=== PATIENT | female | born 2000 | race Caucasian/White ===

== ENCOUNTER 2021-01-27 14:57 | Inpatient (IN) ==
[2021-01-27] MEDS ORDERED: KETOROLAC 30 MG/ML VIAL IV ONE (15:10)
[2021-01-27] MEDS ORDERED: SODIUM CHLORIDE 0.9% 1000ML 1,000 ML IV STA (15:10)
[2021-01-27] MEDS ORDERED: ONDANSETRON INJ 2 MG/ML 2 ML VIAL IV STA (15:10)
[2021-01-27] MEDS ORDERED: cefTRIAXone SODIUM 2,000 MG/70 ML BAG IV STA (15:11)
--- NOTE | 2021-01-27 15:29 | Emergency Department Note ---
Impression & Plan Renal abscess, Acute flank pain ED Provider Note NAME: KASIA UMANA AGE: 20 SEX: F : 2000 ARRIVES VIA: Walk-In INFORMANT: Patient, boyfriend ED PROVIDER(S): Alfredo Herbert MD CHIEF COMPLAINT: UTI< left sided flank pain HPI: This is a 20-year-old female sent in by Mad Mimi over concerns of the patient was having urinary symptoms along with back pain. Patient denies any fevers or chills however she has been having back pain she describes as an ache with radiation down into her flank that started approximately 3 days ago. The patient has been taking Tylenol as well as ibuprofen for the pain without any relief of the pain. She denies any fevers or chills. She denies any thing makes the pain better or worse. ROS: See above HPI for pertinent positives & negatives. A total of 10 systems reviewed and were otherwise negative. PAST MEDICAL HISTORY: See Below PAST SURGICAL HISTORY: See Below FAMILY HISTORY: See Below SOCIAL HISTORY: See Below HOME MEDICATIONS: See Below ALLERGIES: See Below VITALS: See Below PHYSICAL EXAMINATION: VITAL SIGNS - Vital signs and nursing notes were reviewed. GENERAL - 20-year-old female appearing stated age who is in no acute distress. Communicates well with provider and answers questions appropriately. SKIN - Without rashes. HEAD - NC/AT. EYES - PERRL with EOMI bilaterally. Sclera anicteric. Palpebral conjunctiva pink and moist with no injection noted. EARS - No deformities of external structures noted on gross examination bilaterally. NOSE - Midline and without cyanosis. No epistaxis or purulent drainage noted. S eptum midline without deviation or septal hematoma noted. MOUTH/OROPHARYNX - Without perioral cyanosis. Buccal mucosa pink and moist and without leukoplakia. Tongue midline with equal elevation of palate bilaterally. No tonsillar hypertrophy, erythema, or exudates noted. NECK - Neck with FROM. Supple to palpation. No nuchal rigidity. LUNGS - Chest wall symmetric without accessory muscle use, intercostals retractions, or central cyanosis. Normal vesicular breath sounds CTA B/L. No wheezes, rales, or rhonchi appreciated. CARDIAC - RRR with S1/S2. No murmur, rubs, or gallops appreciated. ABDOMEN - Abdominal contour without pulsations or visible masses. BS normoactive all four quadrants. No tenderness, palpable masses, hepatosplenomegaly, or ascites noted. EXTREMITIES - No clubbing or peripheral cyanosis. No pretibial edema present. +3/5 radial, posterior tibial, and dorsalis pedis pulses palpated throughout. +5/5 strength noted in UE/LE bilaterally. NEUROLOGIC - Cranial nerves II through XII grossly intact. Sensory intact to light touch throughout. Patellar reflexes +2/4. PSYCH - A&Ox3 and cooperates fully with examiner. Pt is very pleasant and interacts well with examiner. MEDICAL DECISION MAKING: Patient was seen and evaluated as above in room C1. Review was performed of nursing notes and vital signs. I did review pertinent previous visits and patient history. After obtaining a thorough history and physical examination the above work up was performed. This is a 20-year-old female who presents the emergency department complaining of back pain. Using shared medical decision making with the patient I offered to discuss her case presentation work-up as well as diagnosis with the patient's parents however the patient declined. She is not she does not have an elevation in her white blood cell count. She was originally sent for an x-ray however the radiologist requested a CAT scan of the abdomen pelvis which was consistent with a renal abscess. I did discuss this with the urologist on-call who felt that if the patient remained afebrile she would not need to be drained and she could be admitted here. He did recommend IV cefepime. I did discuss the case with the hospitalist service who did agree to meet the patient. In the emergency department the patient was given Toradol as well as Dilaudid for her pain. Repeat examination revealed improvement the patient's symptoms. While in the department, I personally reevaluated the patient several times and each time the patient was found to be resting comfortably. The patient was educated upon management, educated upon todays findings/results, educated upon importance of follow up from today's visit, educated upon symptoms in which to return, had questions answered prior to discharge, verbalized understanding, and was discharged home in good condition. An order was placed for continuous cardiac monitoring. The monitor shows a rate of 82 with Normal SInus rhythm. The patient was evaluated during a period of high volume and high acuity during the global COVID-19 pandemic, and that diagnosis was suspected/considered upon their initial presentation. Their evaluation, treatment and testing was consistent with current guidelines for patients who present with complaints or s ymptoms that may be related to COVID-19. Patient was seen while provider was wearing PPE. Triage Nursing notes reviewed. Prior medical records reviewed Vital Signs: reviewed and remarkable for no significant abnormalities Differential diagnosis: Appendicitis, ovarian cyst, ovarian torsion, ectopic , TOA, PID, infections, diverticulitis, UTI, obstruction, mesenteric ischemia, aortic pathology, inflammatory bowel disease, renal colic, PUD, pancreatitis, biliary pathology, hernia, volvulus, constipation, as well as other pathologies. ER treatment provided: See below Laboratory studies: As stated above and show below. Imaging studies: See below Consultation(s): Urology, internal Medicine Past Med/Surg History Medical History Anxiety Social History Smoking Status: Never smoker Second Hand Exposure: No; Do You Dip or Chew Tobacco: No; Tobacco Cessation Education Requested by Patient: No Hx Alcohol Use: Yes Hx Substance Use: No Preferred Language: Irish Hotel Manager Required: No Beliefs That Will Affect Care: None Current Living Situation: Alone Current Living Situation Comment: Apartment with roomates Other Information That Helps Us Care for You: No Feels Safe at Home: Yes Safety Concerns: Feels Safe At This Time Assistive Devices: Glasses Assistive Devices Comment: Contact, permanent bottum retainer for teeth Allergies Allergies Allergy/AdvReac Type Severity Reaction Status Date / Time No Known Allergies Allergy Unverified 01/27/21 19:01 Home Meds Home Medications Medication Instructions Recorded Confirmed levonorgestrel [Mirena] 20 mcg INTRAUTERINE DIRECTED 01/27/21 01/27/21 valacyclovir 1,000 mg PO DAILY 01/27/21 01/27/21 Results & Data (ED) Vital Signs Vital Signs - 24 hr 01/27/21 15:04 01/27/21 15:22 01/27/21 15:27 Temperature 36.5 C Temperature Source Skin Pulse Rate 122 H 80 81 Pulse Rate [Right Finger] 84 Pulse Rate from SpO2 Sensor Pulse Rhythm Regular Pulse Rhythm [Right Finger] Regular Pulse Strength [Right Finger] Normal Respiratory Rate 18 24 22 Respiratory Effort / Characteristics Non-Labored Spontaneous Non-Labored Spontaneous Respiratory Depth Normal Normal Respiratory Pattern Regular Regular Blood Pressure 123/82 134/73 Blood Pressure [Left Arm] 134/73 Blood Pressure Mean 95 93 Blood Pressure Mean [Left Arm] 93 Blood Pressure Position Sitting Blood Pressure Position [Left Arm] Sitting Pulse Oximetry 96 98 Oxygen Delivery Method Room Air Room Air Sepsis Recent Fever Within 48 Hours No Sepsis New/Unexplained Change in Mental Status N/A Sepsis Action Taken by Nursing No Action Required 01/27/21 15:29 01/27/21 15:30 01/27/21 15:40 Temperature Temperature Source Pulse Rate 91 H 79 87 Pulse Rate [Right Finger] Pulse Rate from SpO2 Sensor Pulse Rhythm Pulse Rhythm [Right Finger] Pulse Strength [Right Finger] Respiratory Rate 15 20 16 Respiratory Effort / Characteristics Respiratory Depth Respiratory Pattern Blood Pressure 140/78 Blood Pressure [Left Arm] Blood Pressure Mean 98 Blood Pressure Mean [Left Arm] Blood Pressure Position Blood Pressure Position [Left Arm] Pulse Oximetry Oxygen Delivery Method Sepsis Recent Fever Within 48 Hours Sepsis New/Unexplained Change in Mental Status Sepsis Action Taken by Nursing 01/27/21 15:50 01/27/21 16:00 01/27/21 16:10 Temperature Temperature Source Pulse Rate 79 85 77 Pulse Rate [Right Finger] Pulse Rate from SpO2 Sensor Pulse Rhythm Pulse Rhythm [Right Finger] Pulse Strength [Right Finger] Respiratory Rate 16 18 24 Respiratory Effort / Characteristics Respiratory Depth Respiratory Pattern Blood Pressure 122/74 Blood Pressure [Left Arm] Blood Pressure Mean 90 Blood Pressure Mean [Left Arm] Blood Pressure Position Blood Pressure Position [Left Arm] Pulse Oximetry Oxygen Delivery Method Sepsis Recent Fever Within 48 Hours Sepsis New/Unexplained Change in Mental Status Sepsis Action Taken by Nursing 01/27/21 16:20 01/27/21 16:30 01/27/21 16:40 Temperature Temperature Source Pulse Rate 80 83 77 Pulse Rate [Right Finger] Pulse Rate from SpO2 Sensor 80 83 Pulse Rhythm Pulse Rhythm [Right Finger] Pulse Strength [Right Finger] Respiratory Rate 16 23 17 Respiratory Effort / Characteristics Respiratory Depth Respiratory Pattern Blood Pressure 129/64 Blood Pressure [Left Arm] Blood Pressure Mean 85 Blood Pressure Mean [Left Arm] Blood Pressure Position Blood Pressure Position [Left Arm] Pulse Oximetry 97 97 Oxygen Delivery Method Sepsis Recent Fever Within 48 Hours Sepsis New/Unexplained Change in Mental Status Sepsis Action Taken by Nursing 01/27/21 16:57 01/27/21 17:00 01/27/21 17:10 Temperature Temperature Source Pulse Rate 86 82 73 Pulse Rate [Right Finger] Pulse Rate from SpO2 Sensor 82 80 73 Pulse Rhythm Pulse Rhythm [Right Finger] Pulse Strength [Right Finger] Respiratory Rate 18 17 22 Respiratory Effort / Characteristics Respiratory Depth Respiratory Pattern Blood Pressure 119/68 Blood Pressure [Left Arm] Blood Pressure Mean 85 Blood Pressure Mean [Left Arm] Blood Pressure Position Blood Pressure Position [Left Arm] Pulse Oximetry 97 97 96 Oxygen Delivery Method Sepsis Recent Fever Within 48 Hours Sepsis New/Unexplained Change in Mental Status Sepsis Action Taken by Nursing 01/27/21 17:20 01/27/21 17:30 01/27/21 17:40 Temperature Temperature Source Pulse Rate 86 71 71 Pulse Rate [Right Finger] Pulse Rate from SpO2 Sensor 87 72 72 Pulse Rhythm Pulse Rhythm [Right Finger] Pulse Strength [Right Finger] Respiratory Rate 16 22 20 Respiratory Effort / Characteristics Respiratory Depth Respiratory Pattern Blood Pressure 114/57 L Blood Pressure [Left Arm] Blood Pressure Mean 76 Blood Pressure Mean [Left Arm] Blood Pressure Position Blood Pressure Position [Left Arm] Pulse Oximetry 97 97 96 Oxygen Delivery Method Sepsis Recent Fever Within 48 Hours Sepsis New/Unexplained Change in Mental Status Sepsis Action Taken by Nursing 01/27/21 17:50 01/27/21 18:00 01/27/21 18:01 Temperature Temperature Source Pulse Rate 82 91 H 82 Pulse Rate [Right Finger] Pulse Rate from SpO2 Sensor 81 83 83 Pulse Rhythm Pulse Rhythm [Right Finger] Pulse Strength [Right Finger] Respiratory Rate 18 23 15 Respiratory Effort / Characteristics Respiratory Depth Respiratory Pattern Blood Pressure 117/81 Blood Pressure [Left Arm] Blood Pressure Mean 93 Blood Pressure Mean [Left Arm] Blood Pressure Position Blood Pressure Position [Left Arm] Pulse Oximetry 97 96 98 Oxygen Delivery Method Sepsis Recent Fever Within 48 Hours Sepsis New/Unexplained Change in Mental Status Sepsis Action Taken by [facility] Medications Current Medication List: was personally reviewed by me Laboratory Data Attestation: I reviewed the patient's lab results. Result diagrams: 01/27/21 15:20 01/27/21 15:20 Lab Results 01/27/21 01/27/21 01/27/21 Range/Units 15:20 15:20 15:20 WBC 9.92 (4.8-10.8) K/uL RBC 4.18 L (4.2-5.4) M/uL Hgb 14.1 (12.0-16.0) g/dL Hct 38.8 (37-47) % MCV 92.8 (80-100) fL MCH 33.7 (25-34) pg MCHC 36.3 H (32-36) g/dL RDW Std Deviation 42.8 (36.4-46.3) fL RDW Coeff of Kaycee 12.5 (11.5-14.5) % Plt Count 177 (130-400) K/uL MPV 9.2 (7.4-10.4) fL Immature Gran % (Auto) 0.3 % Neut % (Auto) 84.1 % Lymph % (Auto) 5.4 % Sargent % (Auto) 10.0 % Eos % (Auto) 0.1 % Baso % (Auto) 0.1 % Neut # (Auto) 8.34 H (1.4-6.5) K/uL Lymph # (Auto) 0.54 L (1.2-3.4) K/uL Sargent # (Auto) 0.99 H (0.11-0.59) K/uL Eos # (Auto) 0.01 (0-0.5) K/uL Baso # (Auto) 0.01 (0-0.2) K/uL Immature Gran # (Auto) 0.03 H (0.00-0.02) K/uL Sodium 137 (136-145) mmol/L Potassium 4.2 (3.5-5.1) mmol/L Chloride 104 (98-107) mmol/L Carbon Dioxide 27 (21-32) mmol/L Anion Gap 6.0 (3-11) BUN 10 (7-18) mg/dl Creatinine 0.84 (0.6-1.2) mg/dl Est Cr Clr Drug Dosing 114.2 ml/min Est GFR ( Amer) 115.1 ml/min Est GFR (Non-Af Amer) 99.4 ml/min BUN/Creatinine Ratio 11.4 (10-20) Glucose 103 H (70-99) mg/dl Calcium 9.0 (8.5-10.1) mg/dl Total Bilirubin 1.1 H (0.2-1) mg/dl AST 28 (15-37) U/L ALT 48 (12-78) U/L Alkaline Phosphatase 63 (45-117) U/L Total Creatine Kinase 475 H (26-192) U/L Total Protein 7.5 (6.4-8.2) gm/dl Albumin 3.9 (3.4-5.0) gm/dl Globulin 3.6 (2.5-4.0) gm/dl Albumin/Globulin Ratio 1.1 (0.9-2) Lipase 104 (73-393) U/L Urine Color Dark Yellow Urine Appearance Cloudy A (Clear) Urine pH 6.0 (4.5-7.5) Ur Specific Corona 1.024 (1.000-1.030) Urine Protein 1+ H (Negative) Urine Glucose (UA) Negative (Negative) Urine Ketones 2+ H (Negative) Urine Blood 2+ H (Negative) Urine Nitrite Negative (Negative) Urine Bilirubin 1+ H (Negative) Urine Urobilinogen Negative (Negative) Ur Leukocyte Esterase 2+ H (Negative) Urine WBC (Auto) >30 H (0-5) /hpf Urine RBC (Auto) 10-30 H (0-4) /hpf U Hyaline Cast (Auto) 0 (0-5) /lpf U Epithel Cells (Auto) >30 H (0-5) /lpf Urine Bacteria (Auto) 1+ H (Negative) Urine Test (Negative) 01/27/21 Range/Units 15:20 WBC (4.8-10.8) K/uL RBC (4.2-5.4) M/uL Hgb (12.0-16.0) g/dL Hct (37-47) % MCV (80-100) fL MCH (25-34) pg MCHC (32-36) g/dL RDW Std Deviation (36.4-46.3) fL RDW Coeff of Kaycee (11.5-14.5) % Plt Count (130-400) K/uL MPV (7.4-10.4) fL Immature Gran % (Auto) % Neut % (Auto) % Lymph % (Auto) % Sargent % (Auto) % Eos % (Auto) % Baso % (Auto) % Neut # (Auto) (1.4-6.5) K/uL Lymph # (Auto) (1.2-3.4) K/uL Sargent # (Auto) (0.11-0.59) K/uL Eos # (Auto) (0-0.5) K/uL Baso # (Auto) (0-0.2) K/uL Immature Gran # (Auto) (0.00-0.02) K/uL Sodium (136-145) mmol/L Potassium (3.5-5.1) mmol/L Chloride (98-107) mmol/L Carbon Dioxide (21-32) mmol/L Anion Gap (3-11) BUN (7-18) mg/dl Creatinine (0.6-1.2) mg/dl Est Cr Clr Drug Dosing ml/min Est GFR ( Amer) ml/min Est GFR (Non-Af Amer) ml/min BUN/Creatinine Ratio (10-20) Glucose (70-99) mg/dl Calcium (8.5-10.1) mg/dl Total Bilirubin (0.2-1) mg/dl AST (15-37) U/L ALT (12-78) U/L Alkaline Phosphatase (45-117) U/L Total Creatine Kinase (26-192) U/L Total Protein (6.4-8.2) gm/dl Albumin (3.4-5.0) gm/dl Globulin (2.5-4.0) gm/dl Albumin/Globulin Ratio (0.9-2) Lipase (73-393) U/L Urine Color Urine Appearance (Clear) Urine pH (4.5-7.5) Ur Specific Corona (1.000-1.030) Urine Protein (Negative) Urine Glucose (UA) (Negative) Urine Ketones (Negative) Urine Blood (Negative) Urine Nitrite (Negative) Urine Bilirubin (Negative) Urine Urobilinogen (Negative) Ur Leukocyte Esterase (Negative) Urine WBC (Auto) (0-5) /hpf Urine RBC (Auto) (0-4) /hpf U Hyaline Cast (Auto) (0-5) /lpf U Epithel Cells (Auto) (0-5) /lpf Urine Bacteria (Auto) (Negative) Urine Test Negative (Negative) Administered Medications Discontinued Medications Hydromorphone HCl (Hydromorphone Inj 0.5 Mg/0.5 Ml Syr) 0.5 mg IV Q15M PRN PRN Reason: Pain Stop: 02/10/21 15:09 Last Admin: 01/27/21 19:21 Dose: 0.5 mg Documented by: [id number] Admin: 01/27/21 15:41 Dose: 0.5 mg Documented by: [id number] Sodium Chloride (Nss 1000ml) 1,000 mls @ 999 mls/hr IV .Q1H1M STA Stop: 01/27/21 16:10 Last Infusion: 01/27/21 16:14 Dose: 0 mls/hr Documented by: [id number] Admin: 01/27/21 15:25 Dose: 999 mls/hr Documented by: [id number] Ceftriaxone Sodium (Rocephin) 2,000 mg in 70 mls @ 140 mls/hr IV NOW STA Stop: 01/27/21 15:40 Last Infusion: 01/27/21 16:13 Dose: 0 mls/hr Documented by: [id number] Admin: 01/27/21 15:42 Dose: 140 mls/hr Documented by: [id number] Acetaminophen (Ofirmev) 1,000 mg in 100 mls @ 400 mls/hr IV NOW STA Stop: 01/27/21 16:31 Last Infusion: 01/27/21 16:53 Dose: 0 mls/hr Documented by: [id number] Admin: 01/27/21 16:31 Dose: 400 mls/hr Documented by: [id number] Cefepime HCl (Maxipime) 2,000 mg in 20 mls @ 5 mls/min IV NOW STA Stop: 01/27/21 17:39 Last Admin: 01/27/21 17:45 Dose: 5 mls/min Documented by: [id number] Vancomycin HCl 1,500 mg/ (Sodium Chloride) 530 mls @ 200 mls/hr IV NOW STA Stop: 01/27/21 21:03 Last Admin: 01/27/21 19:26 Dose: 200 mls/hr Documented by: [id number] Ioversol (Optiray 300 100ml) 89 ml IV ONCE ONE Stop: 01/27/21 16:48 Last Admin: 01/27/21 16:49 Dose: 89 ml Documented by: [id number] Ketorolac Tromethamine (Ketorolac 30 Mg/Ml Vial) 30 mg IV NOW ONE Stop: 01/27/21 15:11 Last Admin: 01/27/21 15:38 Dose: 30 mg Documented by: [id number] Ondansetron HCl (Ondansetron Inj 2 Mg/Ml 2 Ml Vial) 4 mg IV NOW STA Stop: 01/27/21 15:11 Last Admin: 01/27/21 15:38 Dose: 4 mg Documented by: [id number] Trimethoprim/Sulfamethoxazole (Sulfamethoxazole/Trimethoprim Ds 800/160mg Tab) 1 tab PO NOW ONE Stop: 01/27/21 16:17 Last Admin: 01/27/21 16:32 Dose: 1 tab Documented by: [id number] Imaging Data Radiologist's Impression: KUB X-Ray 01/27/21 15:15 KUB CLINICAL HISTORY: Right flank pain. COMPARISON STUDY: None. FINDINGS: Incidental note is made of an intrauterine device. The bowel gas pattern is normal. Visualized skeletal structures are unremarkable. No urinary calculi are identified. There is apparent irregularity of the posterior right 11th rib. A few adjacent calcific densities measure up to 8 mm. IMPRESSION: 1. No urinary calculi identified. 2. No evidence for a bowel obstruction. 3. Apparent irregularity of the posterior right 11th rib with a few adjacent calcific densities. The findings are of questionable significance however a CT of the abdomen and pelvis is recommended for further evaluation. ACT 112: Negative or not required by law. Electronically signed by: Arley Szymanski M.D. 01/27/2021 3:55 PM Abdomen/Pelvis CT 01/27/21 16:03 CT OF THE ABDOMEN AND PELVIS WITH CONTRAST CLINICAL HISTORY: Right flank pain. COMPARISON STUDY: KUB performed earlier today. TECHNIQUE: Following IV administration of 89 mL of Optiray, axial images of the abdomen and pelvis were obtained from the lung bases to the proximal femurs. Images were reviewed in the axial, sagittal, and coronal planes. IV contrast was administered without complication. Automated exposure control was utilized for the study. A dose lowering technique was utilized adhering to the principles of ALARA. CT DOSE: 322.73 mGy.cm FINDINGS: Lung bases are unremarkable with the exception of a trace left pleural effusion. No pneumatosis, free air or portal venous gas is present. There is borderline splenomegaly. The liver, adrenal glands, right kidney and pancreas are unremarkable. There is no hydronephrosis. There may be trace fluid adjacent to the gallbladder. Note is made of a 4.3 x 3.1 cm fluid collection within the midpole of the left kidney. There is hypoenhancement of the adjacent renal parenchyma with mild left perinephric infiltration. Note is also made of mild urothelial thickening of the left collecting system as well as the left ureter. No urinary calculi are identified. Intrauterine device is in place. There is trace fluid within the pelvis. A 2.6 cm low-attenuation left adnexal lesion represents a cyst or dominant follicle. There is no evidence for a bowel obstruction. The appendix is partially obscured but visualized portions are normal. Major vasculature is patent. No acute fracture or suspicious lesion is identified within the visualized skeletal structures. The possible abnormality of the right 11th rib on KUB was due to overlying costal cartilages. IMPRESSION: 4.3 x 3.1 cm left renal fluid collection with hypoenhancement/edema of the adjacent renal parenchyma and mild left perinephric infiltration. The findings are highly suggestive of a left renal abscess. Mild urothelial thickening of the left collecting system and left ureter suggests pyelitis. Renal ultrasound following treatment is recommended to ensure resolution. ACT 112: Negative or not required by law. Electronically signed by: Arley Szymanski M.D. 01/27/2021 5:12 PM Discharge Plan Visit Data Chief Complaint: Urinary Symptoms Stated Complaint: BACK PAIN, REF OVER ED Provider: Alfredo Herbert Discharge Problem: Renal abscess, Acute flank pain Patient Disposition: Admitted As Inpatient Discharge Instructions Interventions: ED Discharge Assessment Last Done: 01/27/21 20:13
[2021-01-27 15:41] LABS: Basophils # (auto) 0.01 K/uL (0-0.2); Basophils % (auto) 0.1 %; Eosinophils # (auto) 0.01 K/uL (0-0.5); Eosinophils % (auto) 0.1 %; Hematocrit (blood only) 38.8 % (37-47); Hemoglobin 14.1 g/dL (12.0-16.0); Immature Granulocytes # (auto) 0.03 K/uL (0.00-0.02); Immature Granulocytes % (auto) 0.3 %; Lymphocytes # (auto) 0.54 K/uL (1.2-3.4); Lymphocytes % (auto) 5.4 %; Mean Corpuscular Hemoglobin 33.7 pg (25-34); Mean Corpuscular Hgb Conc 36.3 g/dL (32-36); Mean Corpuscular Volume 92.8 fL (80-100); Mean Platelet Volume 9.2 fL (7.4-10.4); Monocytes # (auto) 0.99 K/uL (0.11-0.59); Neutrophils # (auto) 8.34 K/uL (1.4-6.5); Neutrophils % (auto) 84.1 %; Platelet Count 177 K/uL (130-400); Pregnancy Test, Urine Negative (Negative); RDW Coefficient of Variation 12.5 % (11.5-14.5); RDW Standard Deviation 42.8 fL (36.4-46.3); Red Blood Count 4.18 M/uL (4.2-5.4); White Blood Count 9.92 K/uL (4.8-10.8)
[2021-01-27] MEDS: HYDROmorphone INJ 0.5 MG/0.5 ML SYR IV PRN ×2 (15:41→19:21)
[2021-01-27 15:42] LABS: Appearance Urine Cloudy (Clear); Bacteria Urine Automated 1+ (Negative); Blood Urine 2+ (Negative); Color Urine Dark Yellow; Epithelial Cell Urine Auto >30 /lpf (0-5); Glucose Urine UA Negative (Negative); Ketones Urine 2+ (Negative); Leukocyte Esterase Urine 2+ (Negative); Nitrite Urine Negative (Negative); Protein Urine 1+ (Negative); Specific Gravity Urine 1.024 (1.000-1.030); Urobilinogen Urine Negative (Negative); WBC Urine Automated >30 /hpf (0-5)
--- NOTE | 2021-01-27 15:57 | XRay Report ---
KUB CLINICAL HISTORY: Right flank pain. COMPARISON STUDY: None. FINDINGS: Incidental note is made of an intrauterine device. The bowel gas pattern is normal. Visuali zed skeletal structures are unremarkable. No urinary calculi are identified. There is apparent irregu larity of the posterior right 11th rib. A few adjacent calcific densities measure up to 8 mm. IMPRESSION: 1. No urinary calculi identified. 2. No evidence for a bowel obstruction. 3. Apparent irregularity of the posterior right 11th rib with a few adjacent calcific densities. The findings are of questionable significance however a CT of the abdomen and pelvis is recommended for f urther evaluation. ACT 112: Negative or not required by law. Electronically signed by: Arley Szymanski M.D. 01/27/2021 3:55 PM
[2021-01-27 16:01] LABS: Albumin Level 3.9 gm/dl (3.4-5.0); BUN Creatinine Ratio 11.4 (10-20); Creatinine Clr Calc Pharmacy 114.2 ml/min; Est GFR (African American) 115.1 ml/min; Est GFR (Non-African American) 99.4 ml/min; Potassium 4.2 mmol/L (3.5-5.1)
[2021-01-27 16:02] LABS: Bilirubin Urine 1+ (Negative)
[2021-01-27 16:04] LABS: Albumin Globulin Ratio 1.1 (0.9-2); Bilirubin,Total 1.1 mg/dl (0.2-1); Cast Urine Automated 0 /lpf (0-5); Globulin 3.6 gm/dl (2.5-4.0); Total Protein 7.5 gm/dl (6.4-8.2)
[2021-01-27] MEDS ORDERED: SULFAMETHOXAZOLE/TRIMETHOPRIM DS 800/160MG TAB PO ONE (16:16)
[2021-01-27] MEDS ORDERED: ACETAMINOPHEN 1,000 MG/100 ML VIAL IV STA (16:17)
[2021-01-27] MEDS ORDERED: OPTIRAY 300 100mL IV ONE (16:47)
--- NOTE | 2021-01-27 17:13 | CT Scan Report ---
CT OF THE ABDOMEN AND PELVIS WITH CONTRAST CLINICAL HISTORY: Right flank pain. COMPARISON STUDY: KUB performed earlier today. TECHNIQUE: Following IV administration of 89 mL of Optiray, axial images of the abdomen and pelvis we re obtained from the lung bases to the proximal femurs. Images were reviewed in the axial, sagittal, and coronal planes. IV contrast was administered without complication. Automated exposure control wa s utilized for the study. A dose lowering technique was utilized adhering to the principles of ALARA . CT DOSE: 322.73 mGy.cm FINDINGS: Lung bases are unremarkable with the exception of a trace left pleural effusion. No pneumat osis, free air or portal venous gas is present. There is borderline splenomegaly. The liver, adrenal glands, right kidney and pancreas are unremarkable. There is no hydronephrosis. There may be trace fl uid adjacent to the gallbladder. Note is made of a 4.3 x 3.1 cm fluid collection within the midpole o f the left kidney. There is hypoenhancement of the adjacent renal parenchyma with mild left perinephr ic infiltration. Note is also made of mild urothelial thickening of the left collecting system as wel l as the left ureter. No urinary calculi are identified. Intrauterine device is in place. There is tr clyde fluid within the pelvis. A 2.6 cm low-attenuation left adnexal lesion represents a cyst or domina nt follicle. There is no evidence for a bowel obstruction. The appendix is partially obscured but vis ualized portions are normal. Major vasculature is patent. No acute fracture or suspicious lesion is i dentified within the visualized skeletal structures. The possible abnormality of the right 11th rib o n KUB was due to overlying costal cartilages. IMPRESSION: 4.3 x 3.1 cm left renal fluid collection with hypoenhancement/edema of the adjacent renal parenchyma and mild left perinephric infiltration. The findings are highly suggestive of a left renal abscess. M ild urothelial thickening of the left collecting system and left ureter suggests pyelitis. Renal ultr asound following treatment is recommended to ensure resolution. ACT 112: Negative or not required by law. Electronically signed by: Arley Szymanski M.D. 01/27/2021 5:12 PM
[2021-01-27] MEDS ORDERED: CEFEPIME 2,000 MG/20 ML VIAL IV STA (17:36)
--- NOTE | 2021-01-27 18:07 | History & Physical Report ---
Date of Service January 27, 2021 Assessment & Plan (1) Renal abscess: Patient is nonseptic 4.3 x 3.1 cm left renal abscess -initially will treat medically given abscess is less than 5 cm. Consider reimaging at the end of treatment to ensure resolution. Bactrim p.o., ceftriaxone 2 g IV and cefepime 2 g IV given in ER. We will continue cefepime 2 g IV and add vancomycin until MRSA is ruled out. Follow-up urine and blood cultures Consult urology (2) Anxiety: On no routine medication for this. Admission and Anticipated Discharge Date Admission Date: January 27, 2021 History of Present Illness Chief Complaint: Left flank pain Primary Care Provider: DO Jill Hendrickson Jared is a 20-year-old female who presents to the ER with left flank pain. She reports initial symptoms 2 weeks ago with increased urinary frequency although also reports she drinks a lot of fluid and she is unsure whether this was out of the ordinary. For the past 3 days she is and left flank pain with urine increasingly yellow. Last 2 days with chills and sweats but no objective fever. She is planning to go to [facility] today however the wait was too long and she was told she likely has a kidney infection therefore came straight to [facility] ER. For contraception she has the Mirena coil. Urine test in the emergency room was negative. Of note she previously tested positive for COVID-19 on January 08 with mild nasal congestion In the ER CT abdomen pelvis with contrast showed a 4.3 x 3.1 cm left renal fluid collection consistent with an abscess. She has no history of immunosuppression or recurrent infections. She is referred to medicine for admission ongoing management of renal abscess. Allergies Allergy/AdvReac Type Severity Reaction Status Date / Time No Known Allergies Allergy Unverified 01/27/21 19:01 Home Medications Medication Instructions Recorded Confirmed Type levonorgestrel [Mirena] 20 mcg INTRAUTERINE DIRECTED 01/27/21 01/27/21 History valacyclovir 1,000 mg PO DAILY 01/27/21 01/27/21 History Past Med/Surg History Medical History Anxiety Social History Smoking Status: Never smoker Preferred Language: Bulgarian Feels Safe at Home: Yes Review of Systems Review of Systems: All systems reviewed & are unremarkable except as noted in HPI & below Physical Exam Constitutional: WD/WN, vitals as above Eyes: + anicteric sclerae; normal pupil size ENMT: external ear and nose normal, oropharynx normal Respiratory: normal respiratory effort, lungs clear to auscultation Cardiovascular: RRR, no murmur, no edema Gastrointestinal (Abdomen): normal bowel sounds, soft, nontender, no hepatosplenomegaly Musculoskeletal: no cyanosis or clubbing, extremities motor strength 5/5 Skin: no rashes, warm and dry Neurologic: moves all extremities and awake; not confused Psychiatric: A+Ox3, euthymic affect Genitourinary: + CVA tenderness (Left) Results & Data Results & Data ([facility]) Vital Signs (Past 12 Hours) Vital Signs Temp Pulse Pulse Resp BP BP Pulse Ox 01/27/21 18:01 82 15 117/81 98 01/27/21 18:00 91 H 23 96 01/27/21 17:50 82 18 97 01/27/21 17:40 71 20 96 01/27/21 17:30 71 22 114/57 L 97 01/27/21 17:20 86 16 97 01/27/21 17:10 73 22 96 01/27/21 17:00 82 17 119/68 97 01/27/21 16:57 86 18 97 01/27/21 16:40 77 17 01/27/21 16:30 83 23 129/64 97 01/27/21 16:20 80 16 97 01/27/21 16:10 77 24 01/27/21 16:00 85 18 122/74 01/27/21 15:50 79 16 01/27/21 15:40 87 16 01/27/21 15:30 79 20 140/78 01/27/21 15:29 91 H 15 01/27/21 15:27 81 84 22 134/73 98 01/27/21 15:22 80 24 134/73 01/27/21 15:04 36.5 C 122 H 18 123/[address] OF THE ABDOMEN AND PELVIS WITH CONTRAST IMPRESSION: 4.3 x 3.1 cm left renal fluid collection with hypoenhancement/edema of the adjacent renal parenchyma and mild left perinephric infiltration. The findings are highly suggestive of a left renal abscess. Mild urothelial thickening of the left collecting system and left ureter suggests pyelitis. Renal ultrasound following treatment is recommended to ensure resolution. Medications Administered ER medications given: NSS 1 hour bolus Toradol 30 mg IV Ondansetron 4 mg IV Ceftriaxone 2 g IV Bactrim 800/160 mg 1 tab p.o. Acetaminophen 1 g IV Cefepime 2 g IV Code Status & VTE Plan Code Status Full VTE Prophylaxis Plan VTE Prophylaxis will be ordered: No PG Care Time/CCT Total # of Minutes Spent Total Time Spent with Patient: Total time spent is greater than 50% in coordination of care (as documented) at patient's floor/unit and/or counseling patient: Coding Level of Care Code 74614 Initial Inpt Care Lvl 2 Diagnoses Renal abscess N15.1 Anxiety F41.9
[2021-01-27] MEDS ORDERED: VANCOMYCIN CONSULT ACTIVE PRN (18:21)
[2021-01-27] MEDS ORDERED: VANCOMYCIN HCL 1,500 MG in SODIUM CHLORIDE 0.9% 500 ML IV STA (18:25)
--- NOTE | 2021-01-27 19:46 | Urology Consultation ---
Date of Consultation January 27, 2021 Assessment & Plan (1) Renal abscess: Patient has been admitted to the hospital there was service. We will proceed as follows: Continue antibiotics in the form of cefepime and vancomycin which have been initiated We will monitor the patient's clinical progress and consider reimaging her in several days to see if there is any improvement in the size of her perinephric abscess. Earlier reimaging can be considered if the patient spikes fevers or clinically deteriorates despite antibiotic therapy I discussed with the patient that if her abscess does not resolve she may need to be transferred to the alternate facility where interventional radiology dr woods could be performed or IV was discussed with the possibility that she may require surgical drainage this is yet to be determined We will continue to follow along while the patient was hospitalized History of Present Illness Reason for Consultation: Perinephric abscess History of Present Illness This is a 20-year-old female who presented to the emergency department secondary to fevers, shakes, chills, and back pain. Patient says that she noticed her symptoms approximately 3 to 4 days ago. She said that due to Covid she was not going to the gym working out very much and she recently started working out at the gym. Her symptoms began as stated earlier with back pain on the left side and she merely thought that she strained a muscle in the gym. Over the ensuing few days though however the patient developed sweats, chills, and fevers. She noted that she has not had any hematuria or dysuria. As of her ongoing symptoms she presented to the emergency department. Does not note any modifying factors. In the emergency department patient had labs and imaging which I independently reviewed. She had a CT scan of her abdomen that demonstrated a 4.3 x 3.1 cm left perinephric fluid collection concerning for an abscess. Her white blood cell count was noted to be normal on CBC, as well as her hemoglobin, hematocrit and platelet count all noted to be normal. Chemistry profile showed her sodium, potassium, BUN, and creatinine were all normal. Urinalysis did demonstrate positive leukocyte esterase as well as pyuria. Of note she had a Covid test that was noted to be positive. During her Covid being positive the patient has not had any cough. She does have fevers as noted above. She has not lost her sense of taste or smell. At the time of interview she is resting comfortably in bed no distress. Allergies Allergy/AdvReac Type Severity Reaction Status Date / Time No Known Allergies Allergy Unverified 01/27/21 19:01 Home Medications Medication Instructions Recorded Confirmed Type levonorgestrel [Mirena] 20 mcg INTRAUTERINE DIRECTED 01/27/21 01/27/21 History valacyclovir 1,000 mg PO DAILY 01/27/21 01/27/21 History Patient History Medical History Anxiety Social History Smoking Status: Never smoker Second Hand Exposure: No; Do You Dip or Chew Tobacco: No; Tobacco Cessation Education Requested by Patient: No Hx Alcohol Use: Yes Hx Substance Use: No Preferred Language: [place] [employer] Bailiff Required: No Beliefs That Will Affect Care: None Current Living Situation: Alone Current Living Situation Comment: Apartment with roomates Other Information That Helps Us Care for You: No Feels Safe at Home: Yes Safety Concerns: Feels Safe At This Time Assistive Devices: Glasses Assistive Devices Comment: Contact, permanent bottum retainer for teeth Review of Systems Constitutional: + fever, + chills and + sweats Eyes: no diplopia Ear, Nose, Mouth, Throat: no ear trauma Respiratory: no cough and no dyspnea Cardiovascular: no chest pain Gastrointestinal: no abdominal pain, no nausea and no vomiting Genitourinary: + urinary frequency and + flank pain (Left-sided); no dysuria Musculoskeletal: + back pain (Left-sided flank pain) Integumentary: no rash Neurologic: no localized weakness Physical Exam Constitutional: well developed and well nourished; no acute distress Eyes: no conjunctival abnormality ENMT: Ears: no hearing impairment Neck: trachea midline Respiratory: normal respiratory effort, lungs clear to auscultation Cardiovascular: Rate/Rhythm: regular rate and regular rhythm Gastrointestinal (Abdomen): Abdomen is soft and nondistended. There is no rebound tenderness or guarding. Palpation did not cause pain. Musculoskeletal: No calf tenderness Skin: no rashes, warm and dry Neurologic: moves all extremities Psychiatric: A+Ox3, euthymic affect Genitourinary: + CVA tenderness (Left-sided) Results & Data ([facility]) Vital Signs (Past 12 Hours) Vital Signs Temp Pulse Pulse Resp BP BP Pulse Ox 01/27/21 19:32 37.0 C 86 20 131/71 98 01/27/21 19:00 73 19 119/75 99 01/27/21 18:30 76 22 133/70 98 01/27/21 18:01 82 15 117/81 98 01/27/21 18:00 91 H 23 96 01/27/21 17:50 82 18 97 01/27/21 17:40 71 20 96 01/27/21 17:30 71 22 114/57 L 97 01/27/21 17:20 86 16 97 01/27/21 17:10 73 22 96 01/27/21 17:00 82 17 119/68 97 01/27/21 16:57 86 18 97 01/27/21 16:40 77 17 01/27/21 16:30 83 23 129/64 97 01/27/21 16:20 80 16 97 01/27/21 16:10 77 24 01/27/21 16:00 85 18 122/74 01/27/21 15:50 79 16 01/27/21 15:40 87 16 01/27/21 15:30 79 20 140/78 01/27/21 15:29 91 H 15 01/27/21 15:27 81 84 22 134/73 98 01/27/21 15:22 80 24 134/73 01/27/21 15:04 36.5 C 122 H 18 123/82 96 PG Care Time/CCT Total # of Minutes Spent Total Time Spent with Patient: Total time spent is greater than 50% in coordination of care (as documented) at patient's floor/unit and/or counseling patient: Coding Level of Care Code 96681 Inpt Consult Level 5 Diagnoses Renal abscess N15.1
[2021-01-27] MEDS ORDERED: POLYETHYLENE (MIRALAX) 17 GM PACK PO PRN (20:31)
[2021-01-27] MEDS ORDERED: CEFEPIME CONSULT ACTIVE SCH (20:31)
[2021-01-27] MEDS ORDERED: ONDANSETRON INJ 2 MG/ML 2 ML VIAL IV PRN (20:31)
[2021-01-27] MEDS ORDERED: ALUMINUM/MAGNESIUM SUSP 30 ML UDC PO PRN (20:31)
--- NOTE | 2021-01-27 20:39 | Pharmacy Report ---
Pharmacy Abx Dose Short Note - Date of Service January 27, 2021 - Assessment & Plan Assessment * 20 year old F receiving Vancomycin and Cefepime for treatment of perinephric abscess * Received Cefepime, Bactrim and Ceftriaxone in the ED * Afebrile and without white count. Plan Vancomycin * Target AUC/NAHUM = 400-600 * AUC/NAHUM is the preferred PK/PD target for Vancomycin * Loading Dose = 1500 (22 mg/kg) IV x 1 * Maintenance Dose = 1250 mg (18 mg/kg) IV every 12 hours * This regimen is expected to produce a steady-state AUC of 576 and a steady- state trough of 17. It has a probability of 80% to reach our goal AUC with only a 13% risk of nephrotoxicity. Cefepime * 2000 mg IV every 12 hours Pharmacy will continue to follow and will adjust dose/frequency as necessary. Thank you.
[2021-01-27] MEDS: ACETAMINOPHEN 325 MG TAB PO PRN (22:24)
[2021-01-27] MEDS: KETOROLAC TROMETHAMINE 15 MG/ML VIAL IV PRN (23:31)
[2021-01-28] MEDS: ACETAMINOPHEN 325 MG TAB PO PRN ×3 (04:32→20:48)
[2021-01-28] MEDS: oxyCODONE HCL IR 5 MG TAB (IMMEDIATE RELEASE) PO PRN ×3 (04:33→20:48)
[2021-01-28] MEDS: KETOROLAC TROMETHAMINE 15 MG/ML VIAL IV PRN ×3 (05:46→20:49)
[2021-01-28] MEDS: CEFEPIME 2,000 MG in SYRINGE 0 ML IV SCH ×2 (05:47→17:43)
[2021-01-28] MEDS ORDERED: VANCOMYCIN HCL 1,250 MG in SODIUM CHLORIDE 0.9% 250 ML IV SCH (07:00)
[2021-01-28 07:01] LABS: Creatinine Clr Calc Pharmacy 125.9 ml/min; Est GFR (Non-African American) 112.1 ml/min
--- NOTE | 2021-01-28 09:47 | Urology Progress Note ---
Date of Service January 28, 2021 Assessment & Plan (1) Renal abscess: 20 year-old female patient admitted with left flank pain and chills secondary to left renal abscess. -Plan of care reviewed with Dr. Baxter. -T-max in 24 hours 37.7C, recheck this AM 36.8C. -Labs reviewed - creatinine stable. -Preliminary urine culture 80,000 cfu E.Coli, sensitivities pending. -Blood cultures pending. -Continue supportive care and antibiotic therapy, await culture results. -Continue to monitor the patient's clinical progress closely, will need repeat imaging in the future to ensure resolution of abscess. -Earlier reimaging can be considered if the patient becomes febrile or clinically deteriorates despite antibiotic therapy. -For any acute changes in patient status or if she becomes febrile, do recommend transfer to tertiary center for IR intervention/placement of retroperitoneal drain. -Recommendations discussed with patient's primary team. -Will continue to follow closely while inpatient. Admission and Anticipated Discharge Date Admission Date: January 27, 2021 Subjective Patient examined at bedside. She is alert, awake, non-toxic in appearance. Does report earlier this morning, she did have an increase in nausea and chills. Left flank pain also increased early this AM. States after she received PRN pain medication, nausea and pain improved. Currently rates pain 6 out of 10. At time of exam, she denies fevers or chills. Currently denies nausea or vomiting. Denies dysuria or hematuria. Denies urinary frequency but notes urgency at times. Has been ambulating without dizziness/lightheadedness. Overall, she has had improvement in symptoms since this AM. Chart review: T max in 24 hours 37.7C, recheck this morning of 36.8C. Labs 01/27 - Wbc 9.92 Hgb 14.1 Creatinine today 0.76 Preliminary urine culture 80,000 cfu E.Coli. Preliminary blood cultures pending. Patient currently on IV Vancomycin and IV Cefepime. Denies additional urologic concerns today. Review of Systems Constitutional: as per Subjective / HPI and + chills; no fever Respiratory: no cough and no dyspnea Cardiovascular: no edema Gastrointestinal: as per Subjective / HPI and + nausea; no vomiting Genitourinary: as per Subjective / HPI Physical Exam Constitutional: well developed and well nourished; no acute distress and not ill appearing Respiratory: normal respiratory effort and able to speak in complete sentences; no respiratory distress and no audible wheezes Gastrointestinal (Abdomen): Inspection/Auscultation: abdomen normal to inspection; abdomen not distended Percussion/Palpation: abdomen soft; abdomen nontender and no guarding Psychiatric: Orientation: alert, oriented x 3 and cooperative Affect: euthymic affect Genitourinary: + CVA tenderness (+ left CVA tenderness) Results & Data ([facility]) Vital Signs (Past 12 Hours) Vital Signs Temp Pulse Resp BP Pulse Ox 01/28/21 07:34 36.8 C 69 16 107/61 99 01/28/21 04:31 37.7 C H 01/27/21 22:23 36.9 C PG Care Time/CCT Total # of Minutes Spent Total Time Spent with Patient: Total time spent is greater than 50% in coordination of care (as documented) at patient's floor/unit and/or counseling patient: Coding Level of Care Code 93544 Subseq Hosp Care Lvl 2 Diagnoses Renal abscess N15.1
[2021-01-28] MEDS: valACYclovir HCL 500 MG TABLET PO SCH ×2 (11:05→21:15)
--- NOTE | 2021-01-28 13:23 | Hospitalist Progress Note ---
Date of Service January 28, 2021 Assessment & Plan (1) Renal abscess: Due to UTI. CT a/p on 01/27 showed 4.3 x 3.1 cm left renal abscess. - Continue cefepime - Urine culture growing E. coli - Follow sensitivities. - Consulted urology -> Will monitor with IV abx. If abscess getting bigger, will consider drainage either here or at tertiary care. (2) Recurrent cold sores: Has script at home for when she feels one coming. Discussed with urology today. - Started valacyclovir 2g PO BID x 3 days per updated guidelines. Spoke with 2 pharmacists to confirm dosing. (3) Anxiety: On no routine medication for this. - Monitor (4) DVT prophylaxis: SCDs - Low DVT risk per admission calculator Admission and Anticipated Discharge Date Admission Date: January 27, 2021 Subjective Some pain overnight. Less so now. Notes a tingling on her upper lip that is the usual signal of a cold sore coming on. Reports no fevers/chills, chest pain, shortness of breath, abdominal pain, nausea, or vomiting. Physical Exam Constitutional: WD/WN, vitals as above Eyes: EOM intact bilaterally; no conjunctival abnormality ENMT: external ear and nose normal, oropharynx normal Neck: trachea midline, no thyromegaly normal visual inspection Respiratory: normal respiratory effort, lungs clear to auscultation no respiratory distress Cardiovascular: RRR, no murmur, no edema Gastrointestinal (Abdomen): Inspection/Auscultation: abdomen normal to inspection; abdomen not distended Musculoskeletal: no cyanosis or clubbing, extremities motor strength 5/5 Skin: no rashes, warm and dry Neurologic: moves all extremities and awake Psychiatric: Orientation: alert, oriented to person and cooperative Genitourinary: + CVA tenderness (Left) Results & Data Results & Data ([facility]) Vital Signs (Past 12 Hours) Vital Signs Temp Pulse Resp BP Pulse Ox 01/28/21 07:34 36.8 C 69 16 107/61 99 01/28/21 04:31 37.7 C H PG Care Time/CCT Total # of Minutes Spent Total Time Spent with Patient: Total time spent is greater than 50% in coordination of care (as documented) at patient's floor/unit and/or counseling patient: Coding Level of Care Code 11663 Subseq Hosp Care Lvl 3 Diagnoses Renal abscess N15.1 Recurrent cold sores B00.1 Anxiety F41.9 DVT prophylaxis Z29.9
[2021-01-29] MEDS: ACETAMINOPHEN 325 MG TAB PO PRN ×2 (04:58→12:23)
[2021-01-29] MEDS: KETOROLAC TROMETHAMINE 15 MG/ML VIAL IV PRN ×3 (04:58→19:54)
[2021-01-29] MEDS: CEFEPIME 2,000 MG in SYRINGE 0 ML IV SCH (06:11)
[2021-01-29] MEDS ORDERED: VANCOMYCIN LEVEL ONE (06:30)
[2021-01-29 06:38] LABS: Creatinine Clr Calc Pharmacy 147.2 ml/min; Est GFR (African American) 147.1 ml/min; Est GFR (Non-African American) 126.9 ml/min
--- NOTE | 2021-01-29 09:27 | Ultrasound Report ---
LEFT RENAL ULTRASOUND HISTORY: Left kidney -> Monitor abscess. COMPARISON: CT of the abdomen and pelvis January 27, 2021. FINDINGS: Note is made of a complex fluid collection within the midpole of the left kidney which nina esponds to the finding on CT of January 27, 2021. Hypervascularity of the adjacent renal parenchyma is no skylar. This collection measures 3.6 x 3.4 x 3 cm. This has minimally decreased in size since CT of January 27, 2021 when it measured 4.3 cm in maximal dimension. IMPRESSION: Minimal decrease in size of a 3.6 cm left renal abscess since CT of January 27, 2021. ACT 112: Negative or not required by law. Electronically signed by: Arley Szymanski M.D. 01/29/2021 9:25 AM
--- NOTE | 2021-01-29 13:11 | Hospitalist Progress Note ---
Date of Service January 29, 2021 Assessment & Plan (1) Renal abscess: Due to UTI. CT a/p on 01/27 showed 4.3 x 3.1 cm left renal abscess. - Cefepime switch to ceftriaxone for orr-sensitive E. coli. - Consulted urology -> Will monitor with IV abx. Abscess slightly smaller on u/s on 01/29. - Will consult [facility] for abx duration. UpToDate indicates 2-3 week duration total. (2) Recurrent cold sores: Has script at home for when she feels one coming. - Started valacyclovir 2g PO BID x 3 days on 01/28 per updated guidelines. Spoke with 2 pharmacists to confirm dosing. - Still bothering her, but improving slightly. (3) Anxiety: On no routine medication for this. - Monitor (4) DVT prophylaxis: SCDs - Low DVT risk per admission calculator Admission and Anticipated Discharge Date Admission Date: January 27, 2021 Subjective Feels her pain is perhaps slightly better, though mostly under control when using a combination of all her medications. Her lip has some blistering which she feels is likely from not getting the Valtrex started quite soon enough. Reports no fevers/chills, chest pain, shortness of breath, abdominal pain, nausea, or vomiting. Physical Exam Constitutional: WD/WN, vitals as above Eyes: EOM intact bilaterally; no conjunctival abnormality ENMT: external ear and nose normal, oropharynx normal Mouth: + lip abnormality (Mild blister on upper lip) Neck: trachea midline, no thyromegaly normal visual inspection Respiratory: normal respiratory effort, lungs clear to auscultation no respiratory distress Cardiovascular: RRR, no murmur, no edema Gastrointestinal (Abdomen): Inspection/Auscultation: abdomen normal to inspection; abdomen not distended Musculoskeletal: no cyanosis or clubbing, extremities motor strength 5/5 Skin: no rashes, warm and dry Neurologic: moves all extremities and awake Psychiatric: Orientation: alert, oriented to person and cooperative Genitourinary: + CVA tenderness (Left) Results & Data Results & Data ([facility]) Vital Signs (Past 12 Hours) Vital Signs Temp Pulse Resp BP Pulse Ox 01/29/21 07:37 36.5 C 64 16 109/66 97 01/29/21 06:39 37.3 C PG Care Time/CCT Total # of Minutes Spent Total Time Spent with Patient: Total time spent is greater than 50% in coordination of care (as documented) at patient's floor/unit and/or counseling patient: Coding Level of Care Code 59819 Subseq Hosp Care Lvl 2 Diagnoses Renal abscess N15.1 Recurrent cold sores B00.1 Anxiety F41.9 DVT prophylaxis Z29.9
[2021-01-29] MEDS: oxyCODONE HCL IR 5 MG TAB (IMMEDIATE RELEASE) PO PRN ×2 (13:35→19:54)
[2021-01-29] MEDS: cefTRIAXone SODIUM 2,000 MG in DEXTROSE 5% 50 ML IV SCH (13:36)
--- NOTE | 2021-01-29 15:34 | Urology Progress Note ---
Date of Service January 29, 2021 Assessment & Plan (1) Renal abscess: 4.3 cm left renal abscess I have discussed the case with radiology This falls into the moderate-sized renal abscess category which has mixed results with conservative management That said she does seem to be clinically improving and radiology seems to be somewhat reticent about draining this Rather than transfer the patient to another facility I think it would be reasonable to try conservative management with antibiotics and repeat imaging as an outpatient Unfortunately literature suggests he may take up to 10 to 14 weeks before an abscess of the sizable entirely resolved with conservative management alone if it resolves For the short-term I think we should plan to send her home with ciprofloxacin which should penetrate the abscess relatively well We will plan to reimage her in approximately 10 days time and if she is having substantial improvement we will continue the course if no improvement I would consider referral for drainage as an outpatient She remains afebrile and hemodynamically stable overnight I think she could safely be discharged home tomorrow Admission and Anticipated Discharge Date Admission Date: January 27, 2021 Subjective 20-year-old female admitted with a left renal abscess E. coli growing from her urinepansensitive Clinically still exhibiting symptoms but gradually improving She has complaints about diffuse abdominal pain but focused on the left flank more than any other particular location She also has intermittent chills and rigors, they seem to occur most prominently in the morning She is appropriately interactive and seems relatively comparable on evaluation today She had a repeat ultrasound performed today to compare to her CT from admission Her renal abscess is roughly the same size at approximately 4 to 4.3 cm Physical Exam Physical Exam: Tender on the left flank to palpation Constitutional: well developed and well nourished Neck: neck nontender Respiratory: normal respiratory effort; no respiratory distress and does not use accessory muscles Cardiovascular: Rate/Rhythm: regular rate Vessels: radial pulses present Extremities: no edema Gastrointestinal (Abdomen): Inspection/Auscultation: abdomen normal to inspection Percussion/Palpation: abdomen soft; abdomen nontender and no guarding Musculoskeletal: Head/Neck/Chest: normocephalic and head atraumatic Extremities: extremities normal to inspection Skin: no rashes and no lesions Trauma: no evidence of skin trauma Neurologic: awake; not obtunded Speech / Cognition: normal speech Motor/Sensory: no tremor Psychiatric: Orientation: alert and oriented x 3 Lymphatic: no lymphadenopathy Results & Data ([facility]) Vital Signs (Past 12 Hours) Vital Signs Temp Pulse Resp BP Pulse Ox 01/29/21 15:20 36.7 C 77 16 109/73 98 01/29/21 07:37 36.5 C 64 16 109/66 97 01/29/21 06:39 37.3 C PG Care Time/CCT Total # of Minutes Spent Total Time Spent with Patient: Total time spent is greater than 50% in coordination of care (as documented) at patient's floor/unit and/or counseling patient: Coding Level of Care Code 86747 Subseq Hosp Care Lvl 3 Diagnoses Renal abscess N15.1
[2021-01-30] MEDS: oxyCODONE HCL IR 5 MG TAB (IMMEDIATE RELEASE) PO PRN ×4 (04:00→19:38)
[2021-01-30] MEDS: KETOROLAC TROMETHAMINE 15 MG/ML VIAL IV PRN ×2 (04:00→15:59)
[2021-01-30 06:20] LABS: Hematocrit (blood only) 33.1 % (37-47); Hemoglobin 12.2 g/dL (12.0-16.0); Mean Corpuscular Hemoglobin 33.4 pg (25-34); Mean Corpuscular Hgb Conc 36.9 g/dL (32-36); Mean Corpuscular Volume 90.7 fL (80-100); Mean Platelet Volume 8.9 fL (7.4-10.4); Platelet Count 204 K/uL (130-400); RDW Coefficient of Variation 12.6 % (11.5-14.5); RDW Standard Deviation 41.9 fL (36.4-46.3); Red Blood Count 3.65 M/uL (4.2-5.4)
[2021-01-30 06:53] LABS: Calcium 8.5 mg/dl (8.5-10.1); Creatinine Clr Calc Pharmacy 151.9 ml/min; Est GFR (African American) 148.6 ml/min; Est GFR (Non-African American) 128.2 ml/min; Magnesium 2.1 mg/dl (1.8-2.4); Potassium 3.9 mmol/L (3.5-5.1)
[2021-01-30] MEDS: ACETAMINOPHEN 325 MG TAB PO PRN ×3 (08:23→19:37)
--- NOTE | 2021-01-30 09:30 | Urology Progress Note ---
Date of Service January 30, 2021 Assessment & Plan (1) Renal abscess: 20 year-old female patient admitted with left flank pain and chills secondary to left renal abscess. -Plan of care reviewed with Dr. Cobb. -Patient has remained afebrile over the past 24 hours. -Labs reviewed - white count and creatinine stable. -Urine culture with 80,000 cfu E.Coli, pansensitive. -Preliminary blood cultures negative after 48 hours. -Continue supportive care and antibiotic therapy. -Patient continues to have moderate to severe left-sided flank pain and intermittent chills/nausea. -Case discussed previously with radiology, unable to drain renal abscess at our facility. -Given her continued symptoms without significant improvement, would likely benefit from transfer to tertiary center for drainage of abscess. -Discussed this recommendation with patient's primary team. -Will continue to follow while inpatient. Admission and Anticipated Discharge Date Admission Date: January 27, 2021 Supervising Physician Co-Signing Physician Notes Spoke with hospitalist and she indicated the patient was going to be transferred for percutaeous drainage of apparent abscess Subjective Patient seen and examined at bedside. She is alert, awake, non-toxic on exam. Continues to have moderate to severe left-sided flank pain. Reports at times the pain medications, "do not touch it". Continues to have intermittent nausea, denies vomiting. Denies fevers or reports intermittent chills. Denies dysuria or hematuria. Reports urinary frequency, denies urgency. Has been ambulating without dizziness/lightheadedness. Chart review: Wbc 6.70 Hgb 12.2 Creatinine 0.63 Urine culture with 80,000 cfu E.Coli, pansensitive. Preliminary blood cultures no growth after 48 hours. Patient currently on IV Ceftriaxone. Denies additional urologic concerns today. Review of Systems Constitutional: as per Subjective / HPI and + chills; no fever Gastrointestinal: as per Subjective / HPI and + nausea; no vomiting Genitourinary: as per Subjective / HPI Musculoskeletal: as per Subjective / HPI Physical Exam Constitutional: well developed and well nourished; no acute distress and not ill appearing Respiratory: normal respiratory effort and able to speak in complete sentences; no respiratory distress and no audible wheezes Gastrointestinal (Abdomen): Inspection/Auscultation: abdomen normal to inspection; abdomen not distended Percussion/Palpation: abdomen soft; abdomen nontender and no guarding Psychiatric: Orientation: alert, oriented x 3 and cooperative Affect: euthymic affect Genitourinary: + CVA tenderness (+ left CVA tenderness) Results & Data ([facility]) Vital Signs (Past 12 Hours) Vital Signs Temp Pulse Resp BP Pulse Ox Pulse Ox 01/30/21 08:22 36.7 C 71 17 115/64 98 01/30/21 08:10 37.4 C 79 18 108/67 99 01/29/21 23:24 37.3 C 83 16 114/64 100 01/29/21 21:55 100 PG Care Time/CCT Total # of Minutes Spent Total Time Spent with Patient: Total time spent is greater than 50% in coordination of care (as documented) at patient's floor/unit and/or counseling patient: Coding Level of Care Code 43400 Subseq Hosp Care Lvl 2 Diagnoses Renal abscess N15.1
--- NOTE | 2021-01-30 12:19 | Discharge Summary ---
Date of Service January 30, 2021 Admission HPI Per Admitting Provider Jill Coleman is a 20-year-old female who presents to the ER with left flank pain. She reports initial symptoms 2 weeks ago with increased urinary frequency although also reports she drinks a lot of fluid and she is unsure whether this was out of the ordinary. For the past 3 days she is and left flank pain with urine increasingly yellow. Last 2 days with chills and sweats but no objective fever. She is planning to go to [facility] today however the wait was too long and she was told she likely has a kidney infection therefore came straight to the ER. For contraception she has the Mirena coil. Urine test in the emergency room was negative. Of note she previously tested positive for COVID-19 on January 08 with mild nasal congestion In the ER CT abdomen pelvis with contrast showed a 4.3 x 3.1 cm left renal fluid collection consistent with an abscess. She has no history of immunosuppression or recurrent infections. She is referred to medicine for admission ongoing management of renal abscess. Principal Diagnosis Left renal abscess, pyelitis Discharge Exam Constitutional WD/WN, vitals as above Eyes + anicteric sclerae ENMT external ear and nose normal, oropharynx normal Neck trachea midline, no thyromegaly Respiratory normal respiratory effort, lungs clear to auscultation Cardiovascular RRR, no murmur, no edema Extremities: no calf tenderness Chest (Breasts) Chest: normal inspection of chest Gastrointestinal (Abdomen) Inspection/Auscultation: abdomen normal to inspection and normal bowel sounds; abdomen not distended Percussion/Palpation: + abdomen tender (Left CVA tenderness) and abdomen soft; no guarding Musculoskeletal Extremities: extremities normal to inspection; no cyanosis and no clubbing Skin no rashes, warm and dry Neurologic moves all extremities and awake; no focal motor deficits Psychiatric A+Ox3, euthymic affect Lymphatic no lymphedema Discharge Data Allergies Allergy/AdvReac Type Severity Reaction Status Date / Time No Known Allergies Allergy Unverified 01/27/21 19:01 Consultations 01/27/21 17:40 ED Decision to Admit Stat 01/27/21 19:22 Consult Urology Stat 01/27/21 20:31 Consult Urology Routine 01/29/21 13:11 Consult Infectious Diseases Routine 01/30/21 12:13 Burn CD for patient Stat Ordered Studies 01/27/21 16:03 CT abd pelvis IV con only Stat 01/29/21 08:00 US abdomen limited Routine Hospital Course (1) Renal abscess: Due to E. coli UTI with pyelitis. CT a/p on 01/27 showed 4.3 x 3.1 cm left renal abscess. Treated with IV Ceftriaxone for orr-sensitive E. coli. - Consulted urology -> Will monitor with IV abx. Abscess slightly smaller on u/s on 01/29 at 3.9 cm but continues to have daily chills, nausea, low appetite, left flank pain severe at times, requiring tylenol, toradol, and oxycodone Urology says moderate sized abscess with mixed results as far as resolution with conservative management vs drainage Urology on 01/30 recommends transfer out for IR eval for drainage Pt accepted by Dr. 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 - gave valacyclovir 2g PO BID x 3 days on 01/28 per updated guidelines - Still bothering her, but improving slightly. (3) Anxiety: On no routine medication for this. - Monitor (4) DVT prophylaxis: SCDs - Low DVT risk per admission calculator, would not add Lovenox at this time as she will likely be having IR procedure wothin 24 hours Dispo-transfer to [facility] Total Time Total Time Spent Total Time Spent (In Minutes): 45 min Total Time Includes: Examination of the Patient, Discharge Planning, Medication Reconciliation and Communication With Other Providers (Urology Dr. Cobb) Discharge Plan Discharge Items Patient Disposition: Transfer Acute Care Hospital Reason For Visit: KIDNEY ABSCESS Discharge Diagnosis: Left renal abscess, pyelitis, E. coli UTI Condition on Discharge: Fair Activity: As commented below Exercise/Sports: As tolerated Non-emergency contact: Primary Care Provider Call non-emergency contact if: you have any medication questions and your symptoms worsen Follow-up/Referrals: Marisol Ascencio DO [Primary Care Provider] - Diet: Regular Addtl Attending Provider Instructions: Transferred to [facility] Pending Studies at Discharge: Yes Stand-Alone Forms: My [facility] Skilled Items Patient informed of condition?: Yes DNR: No Discharge Level of Care: Other Communicable Disease: No Discharge Prognosis: Stable Lines: Peripheral IV Urinary Catheter: No Medications and DC Order Prescriptions: New ceftriaxone 1 gram recon soln 1 g IV DAILY Qty: 10 RF: 0 Continued Mirena 20 mcg/24 hours (6 yrs) 52 mg Intrauterine Device 20 mcg INTRAUTERINE DIRECTED RF: 0 valacyclovir 1 gram tablet 1,000 mg PO DAILY RF: 0 Discharge Orders: Discharge Order (Routine); Ordered 01/30/21 Ordered By: Bonny Vences Admission Data Admit Date/Time: 01/27/21 18:21 Attending Provider: Bonny Vences Admit Provider: Jamil Perdomo Primary Care Provider: Marisol Ascencio Other Providers: Tyson Baxter ; Adithya Chávez ; Holden Miramontes ; Gautam Collado ; Hugo Galloway I. ; To Myers II ; Onelia Galaviz ; Tristen Degroot Coding Level of Care Code D/C Day Management >30 mins Diagnoses Renal abscess N15.1 Recurrent cold sores B00.1 Anxiety F41.9 DVT prophylaxis Z29.9
[2021-01-30] MEDS: cefTRIAXone SODIUM 2,000 MG in DEXTROSE 5% 50 ML IV SCH (13:14)
[2021-01-30] MEDS: DOCUSATE SODIUM 100 MG CAP PO SCH ×2 (13:14→20:21)
== END 2021-01-30 21:30 | disposition short-term general hospital (02) ==
LOC: ED 14:57 → SUATTDRO 18:21 → 3E 18:21